=== PATIENT | female | born 1990 | race Two or more races ===

== ENCOUNTER 2017-02-06 16:26 | Emergency (ER) | payer OTHER ==
[2017-02-06 16:42] VITALS: BP 108/59; PULSE 69; RESP 16; TEMP 98.2; O2SAT 97
[2017-02-06] MEDS ORDERED: IBUPROFEN 600 MG TAB PO ONE (17:04)
--- NOTE | 2017-02-06 17:10 | EDPHY ---
H & P Time Seen by Provider: 02/06/17 16:50 HPI/ROS: This patient complains of frontal headache similar to prior headaches comma 3/ 10 intensity as well as myalgias in her bilateral feet and neck primarily. She attributes the symptoms to moving yesterday. She and her had to pack up the entire household and moved yesterday which involved caring many items up and down stairs. She has associated fatigue that she attributes to the significant exertion of that activity. She has not tried any medications for her neck pain which is moderate intensity and foot pain which is also moderate worsens with walking. She states the foot pain is symmetric bilateral plantar area primarily. She has no midline neck pain. The history is provided via translation from her . The patient is from [place]. They are leaving here while her goes to school at [employer]. ROS: No fevers or chills. No other constitutional symptoms except fatigue as mention. HEENT: No sore throat. No ear pain or other complaints. Neuro: No visual changes. No focal numbness tingling weakness. She denies any throbbing headache. No head trauma Pulmonary: No complaints Cardiovascular: No chest pain or lightheadedness. No lower extremity swelling. GI: No complaints : No complaints Integumentary: No complaints 10 point ROS is otherwise negative Past Medical/Surgical History: Otherwise healthy Smoking Status: Never smoked Physical Exam: General Appearance: Alert, no distress. Eyes: Pupils equal and round no pallor or injection. ENT, Mouth: Mucous membranes moist. No cranial tenderness except mild frontal tenderness bilaterally at the site of her headache. Ears: Clear bilaterally oropharynx: Clear Respiratory: There are no retractions, lungs are clear to auscultation. Cardiovascular: Brisk capillary refill is intact throughout. Neurological: GCS 15. Cranial nerves 2-12 intact. No focal deficits are appreciated Skin: Warm and dry, no rashes. Musculoskeletal: Neck is supple. No midline tenderness. She has bilateral paraspinous cervical muscular tenderness. She retains full range of motion despite this. Extremities are symmetrical, full range of motion. Atraumatic and nontender except for bilateral feet Left foot: Mild tenderness to the plantar aspect without swelling or ecchymosis. No erythema. No 5th metatarsal tenderness. No ankle swelling or tenderness Right foot:Mild tenderness to the plantar aspect without swelling or ecchymosis. No erythema. No 5th metatarsal tenderness. No ankle swelling or tenderness Psychiatric: Mood and affect are normal DIFFERENTIAL DIAGNOSIS: After history and physical exam differential diagnosis was considered for tension headache, doubt sinusitis, muscle strain, doubt discogenic disease, plantar fasciitis Constitutional: Initial Vital Signs Temperature (C) 36.8 C 02/06/17 16:28 Heart Rate 69 02/06/17 16:28 Respiratory Rate 16 02/06/17 16:28 Blood Pressure 108/59 L 02/06/17 16:28 O2 Sat (%) 97 02/06/17 16:28 O2 Delivery Mode Room Air Allergies/Adverse Reactions: banana Allergy (Verified 02/06/17 16:43) coffee (Coffea arabica) [coffee] Allergy (Verified 02/06/17 16:43) Home Medications: Medication Instructions Recorded Methocarbamol [Robaxin 750 mg (*)] 750 - 1,500 mg PO QID PRN #30 tab 02/06/17 MDM/Departure - MDM Medications Given: Discontinued Medications Ibuprofen (Motrin) 600 mg PO EDNOW ONE Stop: 02/06/17 17:05 Last Admin: 02/06/17 17:08 Dose: Not Given ED Course/Re-evaluation: Patient declined ibuprofen here. Encouraged her to take ibuprofen at home and use methocarbamol if needed for neck discomfort despite the ibuprofen. Discussion: Findings are consistent with tension headache and muscle strain. The not think this patient has RN TRAINING infection, sinusitis, radiculopathy or other concerning findings. She understands the need to return should she develop any significant worsening of her symptoms despite the treatment plan. - Depart Disposition: Home, Routine, Self-Care Clinical Impression: Tension headache Neck muscle strain Qualifiers: Encounter type: initial encounter Qualified Code(s): S16.1XXA - Strain of muscle, fascia and tendon at neck level, initial encounter Repetitive strain injury of foot Qualifiers: Encounter type: initial encounter Laterality: unspecified laterality Qualified Code(s): S96.919A - Strain of unspecified muscle and tendon at ankle and foot level, unspecified foot, initial encounter Condition: Good Instructions: Muscle Strain (ED), Tension Headache (ED) Additional Instructions: Diagnoses: 1. Tension headache 2. Neck muscle strain 3. Repetitive foot muscle strain Plan: [id number] mg per 6 hours as needed Methocarbamol muscle relaxant in addition if needed. Tylenol in addition if needed Symptoms are likely persist at a similar level or worsen for day or 2 and then should improve significantly and resolved by 10 days or so. Return for any significant worsening despite treatment plan Stand Alone Forms: Work Excuse Prescriptions: Methocarbamol [Robaxin 750 mg (*)] 750 - 1,500 mg PO QID PRN #30 tab PRN Reason: Muscle Spasms Referrals: NONE *PRIMARY CARE P,. [Primary Care Provider] - As per Instructions
== END 2017-02-06 17:25 | disposition home or self-care (01) ==
LOC: CED 16:26
DX: S16.1XXA Strain of muscle, fascia and tendon at neck level, initial encounter (principal); S96.911A Strain of unspecified muscle and tendon at ankle and foot level, right foot, initial encounter; S96.912A Strain of unspecified muscle and tendon at ankle and foot level, left foot, initial encounter; G44.209 Tension-type headache, unspecified, not intractable; X58.XXXA Exposure to other specified factors, initial encounter